=== PATIENT | female | born 1950 | race Caucasian/White ===

== ENCOUNTER → 2017-05-18 | Outpatient (CLI) | payer MEDICARE ==
--- NOTE | 2017-05-18 11:01 | MRI ---
EXAM: Cervical Spine HISTORY: CERVICALGIA COMPARISON: MRI of cervical spine from December 19, 2005 TECHNIQUE: Routine MRI protocol for cervical spine without intravenous contrast administration FINDINGS: Bony alignment at craniocervical and atlantooccipital junctions, including atlantoaxial interval, are maintained. There is stably straightened cervical lordosis. Vertebral heights are intact without compression injury. No spondylolysis nor spondylolisthesis is identified. Marrow signal characteristics are within normal limits without concerning edema to indicate acute/recent injury nor inflammation nor marrow infiltration. Facet joints demonstrate unremarkable alignment bilaterally. Spinous processes are intact. Cervical cord is morphologically unremarkable in appearance without focal expansile nor atrophic process, nor abnormal signal abnormality. Paraspinal soft tissue abnormality are within normal limits. At C2-3 level, disc height is maintained. Central canal and neuroforamen bilaterally are patent. At C3-4 level, disc height is maintained. Central canal and neuroforamen bilaterally are patent. At C4-5 level, disc height is maintained. Subtle posterior disc protrusion or extrusion by 1 mm is unchanged, continuing to minimally efface the ventral thecal margin without abutting the ventral cord. Central canal and right neuroforamen remains patent. Uncovertebral hypertrophy contributes to stable mild left neuroforaminal stenosis At C5-6 level, disc height is maintained. Annular disc bulge is associated with 3 mm posterior disc extrusion, which continue to broadly flattening the ventral thecal margin and mildly flatten the ventral cord. Central canal measures 6 to 7 mm in AP dimension, previously 7 to 8 mm in comparable dimension. Right neuroforamen is patent. Uncovertebral hypertrophy contributes to stable moderate left neuroforaminal stenosis At C6-7 level, disc height now reduced by less than 30%, previously maintained. Annular disc bulge at this level is associated with 3 mm of broad-based posterior disc extrusion which now increasingly abut and flatten the ventral cord. Central canal AP dimension of 7 mm, previously 9 mm. Extruded disc extending toward both lateral recesses now contribute to moderate to severe bilateral neuroforaminal stenosis, whereas in prior study of the right neuroforamen was patent while the left neuroforamen with is moderately stenosed. As C7-T1 level, disc height is maintained. Central canal and neuroforamen bilaterally are patent. IMPRESSION: 1. No acute or recent bony injury in cervical spine 2. No extrinsic compression nor myelomalacia nor demyelination in the cervical cord. 3. Interval increase in posterior disc extrusion at C5-6 and C6-7 levels, with mildly increased central canal stenosis at both levels. These changes likely correspond to interval progression of degenerative process. 4. Stable or slightly increased neuroforaminal stenosis in several levels as described. Electronically signed by: Keshawn Wiggins MD 05/18/2017 11:00 AM [facility]
== END ==
LOC: MRI 10:00
PROVIDERS: ATTEND Family Medicine
DX: M50.20 Other cervical disc displacement, unspecified cervical region (principal)

== ENCOUNTER → 2017-07-06 | Outpatient (CLI) | payer MEDICARE ==
--- NOTE | 2017-07-06 11:36 | RAD ---
EXAM DESCRIPTION: Knee,Left 2 or More Views CLINICAL HISTORY: 66 years, Female, PAIN IN LEFT KNEE COMPARISON: None TECHNIQUE: Four views of the left knee including standing views FINDINGS: No fracture or dislocation. Bones appear mildly osteopenic with prominent vector pattern. Narrowed appearance of medial and lateral compartments on frontal view. There is prominent medial and lateral joint line spurring. Lateral view shows normal position of the patella. There is complete loss of joint space with prominent posterior superior and inferior patellar spurring. Prominent spurring of the posterior femoral condyles. No suprapatellar knee joint effusion. Normal contour of quadriceps and patellar tendons. Mild lateral subluxation of the patella is seen on patellar sunrise view. Posterior patellar apex is approximately 5.5 mm lateral to the central trochlear trough. Large posterior medial and lateral patellar osteophytes are present with large osteophytes of the anterior femoral trochlea. IMPRESSION: Advanced degenerative osteoarthritis as described. Electronically signed by: James Fox MD 07/06/2017 11:34 AM CDT
--- NOTE | 2017-07-07 08:13 | RAD ---
EXAM DESCRIPTION: Pelvis CLINICAL HISTORY: 66 years Female, PAIN IN LEFT HIP COMPARISON: None. TECHNIQUE: Single x-ray view of hips and pelvis FINDINGS: Degenerative spurring is seen in the lower lumbar spine. Sacrum and SI joints appear intact. Mild degenerative changes of the pubic symphysis and hips with mild medial bilateral hip joint space narrowing and mild spurring at the inferior acetabular margins. No lytic lesion of the visualized osseous structures. No fracture or dislocation. IMPRESSION: Negative for fracture or dislocation. Degenerative changes as described. Electronically signed by: James Fxo MD 07/07/2017 8:11 AM CDT
== END ==
LOC: RAD 08:42
PROVIDERS: ATTEND Orthopaedic Surgery
DX: M25.562 Pain in left knee (principal); M17.32 Unilateral post-traumatic osteoarthritis, left knee

== ENCOUNTER → 2017-08-04 | Outpatient (CLI) | payer MEDICARE | LOC: LAB.O 13:03 | PROVIDERS: ATTEND Orthopaedic Surgery | DX: Z01.818 Encounter for other preprocedural examination (principal) ==

== ENCOUNTER 2017-09-18 05:46 | Inpatient (IN) | payer MEDICARE ==
--- NOTE | 2017-09-09 14:24 | HP ---
CHIEF COMPLAINT: Left knee pain. HISTORY OF PRESENT ILLNESS: Miya is a 66-year-old female with a history of pain in the left knee. It has been getting progressively worse over the past couple of years and she has had a right total knee replacement. She denies any history of trauma related to her left knee pain, denies any radiation of pain or neurologic symptoms. She has tried both anti-inflammatories and opioid medication from her primary care physician. Unfortunately, she has failed to get relief from that. Because of her failure of relief and ongoing pain, she has requested operative intervention. After discussing the risks, benefits and alternatives to that, the patient has given informed consent for total knee arthroplasty. PAST SURGICAL HISTORY: 1. Rotator cuff repair. 2. Knee arthroplasty. 3. Knee arthroscopy. MEDICATIONS: 1. Metformin. 2. Paroxetine. 3. Lisinopril. 4. Pantoprazole. 5. Tylenol with codeine. ALLERGIES: NO KNOWN DRUG ALLERGIES. CODE STATUS: Full code. IMMUNIZATIONS: Up to date. FAMILY HISTORY: None pertinent to today's complaint. SOCIAL HISTORY: The patient does not drink, smoke or use any illicit drugs. REVIEW OF SYSTEMS: Negative except as indicated in the History of Present Illness. PHYSICAL EXAMINATION: VITAL SIGNS: Blood pressure 99/80. Pulse 91. Height 5'4". Weight 208 pounds. MENTAL STATUS: The patient is awake, alert, and is able to give a good history and participate in the physical. The patient is oriented to person, place and time. SKIN: Normal tone and turgor. HEENT: Normocephalic, atraumatic. Pupils equal, round and reactive. Mucosal membranes are moist. NECK: Normal range of motion. No thyromegaly, no lymphadenopathy. CHEST: Normal respiratory excursion. CARDIAC: Regular rate and rhythm. No murmurs, rubs or gallops. MUSCULOSKELETAL: She has full range of motion of the bilateral upper extremities. She has intact sensation and they are warm and well perfused. There is no deformity and no crepitus with range of motion of the extremities. The right lower extremity shows no pain with range of motion of the hip. She has a well-healed wound anteriorly from previous knee replacement. She has full extension of the knee and flexion is to about 110 to 115 degrees. Strength is 5/5. Sensation is intact and it is warm and well perfused. The left lower extremity shows full painless range of motion of the hip. Sensation in the extremity is intact. The knee shows failure of full extension by about 5 degrees. Flexion is to 125 degrees. There is no overall deformity and no varus/valgus or anterior/posterior laxity. She has a moderate effusion. She has crepitus throughout. She has pain with patellar mobilization. She does walk with a slight antalgic gait. IMAGING: X-rays show severe endstage arthritis. ASSESSMENT: 1. Osteoarthritis. PLAN: The plan at this point is for total knee arthroplasty. We have discussed the risks, benefits, and alternatives to that and the patient has given informed consent. #[id number] [facility]
[2017-09-18] MEDS ORDERED: SODIUM CHL 0.9% 100ML MINI-BAG 100 ML IVPB ONE (06:04)
[2017-09-18] MEDS ORDERED: VANCOMYCIN HCL INJ 1,000 MG VIAL IVPB ONE ×3 (06:04→20:11)
[2017-09-18] MEDS ORDERED: LACTATED RINGERS 1,000 ML ONE (06:04)
[2017-09-18] MEDS ORDERED: SODIUM CHLORIDE 0.9% 250ML 250 ML ONE ×3 (06:05→20:11)
[2017-09-18] MEDS ORDERED: ceFAZolin SODIUM 1 GM VIAL ONE ×2 (06:05→06:20)
[2017-09-18] MEDS ORDERED: SODIUM CHLORIDE 0.9% 100ML 100 ML IVPB ONE (06:14)
[2017-09-18] MEDS ORDERED: TRANEXAMIC ACID 1,000 MG/10 ML VIAL ONE ×2 (06:14)
[2017-09-18] MEDS ORDERED: MORPHINE SULF *EPIDURAL* 1 MG/ML VIAL ONE (06:27)
[2017-09-18] MEDS ORDERED: fentaNYL CITRATE INJ 50 MCG/ML AMP ONE (06:27)
[2017-09-18] MEDS ORDERED: ACETAMINOPHEN IV 1000MG 100 ML ONE (06:27)
[2017-09-18] MEDS ORDERED: MIDAZOLAM INJ 2 MG/2 ML VIAL ONE (06:27)
[2017-09-18] MEDS: VANCOMYCIN HCL INJ 1,000 MG VIAL IVPB ONE ×3 (06:40→08:36)
[2017-09-18] MEDS ORDERED: ZOLPIDEM TARTRATE 5 MG TAB PO PRN (06:49)
[2017-09-18] MEDS ORDERED: TEMAZEPAM 15 MG CAP PO PRN (06:49)
[2017-09-18] MEDS ORDERED: BISACODYL SUPPOSITORY 10 MG PR PRN (06:49)
[2017-09-18] MEDS ORDERED: PROMETHAZINE HCL INJ 25 MG in SODIUM CHLORIDE 0.9% 50ML 50 ML IVPB PRN (06:49)
[2017-09-18] MEDS ORDERED: ACETAMINOPHEN 500 MG TAB PO PRN (06:49)
[2017-09-18] MEDS ORDERED: CYCLOBENZAPRINE HCL 10 MG TAB PO PRN (06:49)
[2017-09-18] MEDS ORDERED: SODIUM CHLORIDE 0.9% (FLUSH) 10 ML SYG IV PRN (06:49)
[2017-09-18] MEDS ORDERED: ACETAMINOPHEN 325 MG TAB PO PRN (06:49)
[2017-09-18] MEDS ORDERED: traMADol HCL 50 MG TAB PO PRN (06:49)
[2017-09-18] MEDS ORDERED: MORPHINE SULFATE INJ 10 MG/ML VIAL IV PRN (06:49)
[2017-09-18] MEDS ORDERED: DEX 5% W/NACL 0.45% 1000ML 1,000 ML IVS PRN (06:49)
[2017-09-18] MEDS ORDERED: NALOXONE HCL INJ 0.4 MG/ML VIAL IV PRN (06:49)
[2017-09-18] MEDS ORDERED: ONDANSETRON INJ 4 MG/2 ML VIAL IV PRN (06:49)
[2017-09-18] MEDS ORDERED: BENZOCAINE-MENTH LOZ (CEPACOL) 1 EA LOZ MT PRN (06:49)
[2017-09-18] MEDS ORDERED: TRANEXAMIC ACID INJ 1,000 MG in SODIUM CHLORIDE 0.9% 100ML 100 ML IVPB ONE (06:49)
[2017-09-18] MEDS ORDERED: PROMETHAZINE HCL INJ 12.5 MG in SODIUM CHLORIDE 0.9% 50ML 50 ML IVPB PRN (06:49)
[2017-09-18] MEDS ORDERED: ALUMINUM & MAGNESIUM HYDROXIDE 30 ML UD PO PRN (06:49)
[2017-09-18] MEDS ORDERED: MAGNESIUM HYDROXIDE 30 ML UD PO PRN (06:49)
[2017-09-18] MEDS ORDERED: MORPHINE SULFATE INJ 10 MG/ML VIAL IM PRN (06:49)
[2017-09-18] MEDS ORDERED: MORPHINE PCA 1 MG/ML 100 ML BAG IVPB SCH (07:00)
[2017-09-18] MEDS: BUPIVACAINE 0.25% W/EPI 50 ML VIAL INJ ONE ×2 (08:04→08:46)
[2017-09-18] MEDS: ceFAZolin SODIUM 1 GM VIAL ONE ×2 (08:04→08:36)
[2017-09-18] MEDS ORDERED: ELECTROLYTE-A 1,000 ML IVS ONE (08:45)
[2017-09-18] MEDS ORDERED: SODIUM CHLORIDE 0.9% 50 ML VIAL ONE (09:00)
[2017-09-18] MEDS ORDERED: GLYCOPYRROLATE 0.2 MG/ML VIAL ONE (09:00)
[2017-09-18] MEDS ORDERED: raNITIdine HCL INJ 25 MG/ML VIAL ONE (09:00)
[2017-09-18] MEDS ORDERED: ePHEDrine SULF 50 MG/ML ONE (09:00)
[2017-09-18] MEDS ORDERED: PROPOFOL 200 MG/20 ML VIAL IV ONE (09:00)
[2017-09-18] MEDS ORDERED: METOCLOPRAMIDE HCL INJ 10 MG/2 ML VIAL ONE (09:00)
[2017-09-18] MEDS ORDERED: DEXAMETHASONE INJ 10 MG/ML VIAL ONE (09:00)
[2017-09-18] MEDS ORDERED: PHENYLEPHRINE INJ 1ML 10 MG/ML VIAL ONE (09:00)
--- NOTE | 2017-09-18 11:07 | RAD ---
EXAM DESCRIPTION: Knee,Left 2 or More Views CLINICAL HISTORY: 66 years, Female, TKA COMPARISON: None TECHNIQUE: Two views left knee FINDINGS: Two views left knee postoperatively demonstrate total knee were prosthesis in place. I am uncertain that a patellar articular surface has been placed. Opaque metallic tibial and femoral components are well aligned. Postsurgical changes in the anterior soft tissues noted. IMPRESSION: 1. Satisfactory alignment of left total knee prosthesis. Electronically signed by: Chapincito Mishra MD 09/18/2017 11:05 AM CDT
[2017-09-18] MEDS ORDERED: ceFAZolin SODIUM 2 GRAMS PREMI 50 ML IVPB ONE ×2 (11:38→20:11)
[2017-09-18] MEDS: MAGNESIUM OXIDE 400 MG TAB PO SCH (12:58)
[2017-09-18] MEDS ORDERED: CELECOXIB 100 MG CAP ONE (13:52)
[2017-09-18] MEDS: ceFAZolin SODIUM 2 GRAMS PREMI 2 GM in PREMIX BAG 1 BAG IVPB SCH ×2 (16:03→23:59)
[2017-09-18] MEDS ORDERED: tiZANidine 4 MG TAB PO PRN (16:37)
[2017-09-18] MEDS: CELECOXIB 100 MG CAP PO SCH (16:42)
[2017-09-18] MEDS ORDERED: INSULIN LISPRO 100 UNITS/ML PEN SUBCU ONE (16:44)
[2017-09-18] MEDS ORDERED: DEXTROSE 50% 25 GM/50 ML SYG IV PRN (17:09)
[2017-09-18] MEDS ORDERED: GLUCAGON INJ 1 MG VIAL SUBCU PRN (17:09)
[2017-09-18] MEDS: INSULIN LISPRO 100 UNITS/ML PEN SUBCU SCH ×2 (17:18→21:08)
[2017-09-18] MEDS: metFORMIN HCL 500 MG TAB PO SCH (17:21)
[2017-09-18] MEDS: VANCOMYCIN HCL INJ 1,000 MG in SODIUM CHLORIDE 0.9% 250ML 250 ML IVPB SCH (17:29)
[2017-09-18] MEDS: SODIUM CHLORIDE 0.45% 1000ML 1,000 ML IVS PRN (20:24)
[2017-09-18] MEDS: DOCUSATE CALCIUM 240 MG CAP PO SCH (20:30)
[2017-09-18] MEDS: PANTOPRAZOLE SODIUM TAB 40 MG PO SCH (20:30)
--- NOTE | 2017-09-18 21:16 | CONS ---
DATE OF CONSULTATION: 09/18/17 SUPERVISING PHYSICIAN: Ryan Yeh M.D. REASON FOR CONSULTATION: Total left knee arthroplasty. HISTORY OF PRESENT ILLNESS: Ms. Silverio is a 66 year-old female patient who has a longstanding history of left knee pain. The pain had progressively worsened over the last several years after she had had a total right knee replacement. She was denying any history of trauma related to the knee pain and noted that the pain was not responding to any conservative treatments, including antiinflammatories and physical therapy. Due to the failure to respond to treatment and getting any significant relief and decreasing ability to perform everyday activities of living, she requested operative intervention. She is admitted to [facility] for elective total left knee arthroplasty. She was seen in the immediate postoperative state in stable condition. PAST MEDICAL HISTORY: 1. Diabetes mellitus. 2. Hypertension. 3. Depression. 4. Chronic knee pain. PAST SURGICAL HISTORY: 1. Rotator cuff repair bilaterally. 2. Right knee arthroscopy. 3. Right knee arthroplasty. 4. Carpal tunnel repair. HOME MEDICATIONS: 1. Paxil 20 mg daily. 2. Protonix 40 mg at bedtime. 3. Metformin 1,000 mg b.i.d. 4. Lisinopril 10 mg daily. 5. Gabapentin 300 mg daily. 6. Meloxicam 15 mg daily. ALLERGIES: NO KNOWN DRUG ALLERGIES. FAMILY HISTORY: Positive for diabetes mellitus, hypertension and cardiovascular disease. SOCIAL HISTORY: The patient lives in [place]. She is retired. . She has never drank and rarely drinks alcohol. REVIEW OF SYSTEMS: CONSTITUTIONAL: Denies any generalized weakness, weight loss, fevers, chills. HEENT: No headaches, nasal congestion, sore throat, ear aches. CHEST: No cough, wheezing or shortness of breath. CARDIOVASCULAR: No chest pains, palpitations or syncopal episodes. GASTROINTESTINAL: No nausea, vomiting, diarrhea, abdominal pains, constipation. GENITOURINARY: Denies any dysuria, hematuria, polyuria or other urinary symptoms. MUSCULOSKELETAL: As noted on History of Present Illness, total left knee arthroplasty. NEUROLOGIC: Denies any ataxia, seizures, syncopal episodes or other neurological deficits. PHYSICAL EXAMINATION: VITAL SIGNS: Temperature 97.7, pulse 103, blood pressure 122/76, respirations 14, satting 98% on nasal cannula at 3 liters at rest. Admission weight 94.3 kg. GENERAL: The patient is resting comfortably. Appears to be in no acute distress currently with left leg in place with a CPM and Iceman overlying the knee. She is alert. HEENT: Tympanic membranes are clear bilaterally. Oropharynx is pink and moist without any lesions. NECK: Supple, non-tender with full range of motion. No jugular venous distention. CHEST: Clear to auscultation bilaterally without any rhonchi, wheezing or rales. HEART: Regular rate and rhythm without appreciable murmurs, gallops, or rubs. ABDOMEN: Obese but soft, non-tender. Positive bowel sounds. EXTREMITIES: Left knee has a large bulky dressing in place as well as an Iceman. Pulse distally was strong. Capillary refill is brisk. NEUROLOGIC: She was alert and oriented times three. LABORATORY: CBC this morning on admission showed a white count 4,500 with hemoglobin 14.4, hematocrit 42.0, platelet count 209,000. Differential is within normal limits. Chemistries showed normal electrolytes with potassium 4.2 , BUN 18, creatinine 0.74 with glucose 200, calcium 10. RADIOLOGY: Postoperative knee x-ray per radiology interpretation shows satisfactory alignment of left total knee prosthesis. ASSESSMENT: 1. Chronic knee pain with failure to respond to outpatient treatment plan requiring surgical intervention with the patient being postoperative day zero for an elective total left knee arthroplasty having been performed by Dr. Nahid Cox, orthopedic surgeon 2. Hypertension. 3. Depression. 4. Gastroesophageal reflux disease. 5. Diabetes mellitus on oral therapy. PLAN: Will follow the patient as she progresses along in her physical therapy and rehabilitation efforts. Will resume her home medications as appropriate once she is having good oral intake. Will start her on a sliding scale per protocol. She will be on DVT prophylaxis as per protocol for orthopedic surgery. In discussing with her this morning in regards to plans for ongoing physical therapy once discharge is to begin therapy with [facility] in [place] which is where her daughter resides once she is able to discharge. Will anticipate at least 2 to 3 days before discharge with continuation of physical therapy and once the patient has met her clinical goals, certainly will discharge to continue with outpatient management. Until then, will continue to monitor and treat appropriately. #[id number] [facility]
--- NOTE | 2017-09-18 22:06 | PCM.CORE ---
Physician DVT/VTE - Nurse DVT Assessment & Total Each Risk Factor Represents 5 Points: Elective Arthtroplasty Each Risk Factor Represents 2 Points: Age 60-74, Major Surgery >45 minutes Each Risk Factor Represents 1 Point: Hx Major Surgery <1month Each Risk Factor is 1 Point: Obesity (BMI >25) DVT Assessment Score: 11 - 5 or more Very High Risk Treatments: Early Ambulation *, Sequential Compression Device Pharmacological: Enoxaparin 30mg SQ BID
[2017-09-18] MEDS: ENOXAPARIN SODIUM 30 MG/0.3 ML SYG SUBCU SCH (22:40)
[2017-09-19] MEDS: VANCOMYCIN HCL INJ 1,000 MG in SODIUM CHLORIDE 0.9% 250ML 250 ML IVPB SCH (06:09)
[2017-09-19] MEDS: CELECOXIB 100 MG CAP PO SCH ×2 (10:04→17:45)
[2017-09-19] MEDS: metFORMIN HCL 500 MG TAB PO SCH ×2 (10:06→17:46)
[2017-09-19] MEDS: MAGNESIUM OXIDE 400 MG TAB PO SCH (10:25)
[2017-09-19] MEDS: LISINOPRIL 5 MG TAB PO SCH (10:25)
[2017-09-19] MEDS: GABAPENTIN 300 MG CAP PO SCH (10:25)
[2017-09-19] MEDS: PARoxetine HCL 20 MG TAB PO SCH (10:25)
[2017-09-19] MEDS ORDERED: ceFAZolin SODIUM 2 GRAMS PREMI 50 ML IVPB ONE (10:26)
[2017-09-19] MEDS: ceFAZolin SODIUM 2 GRAMS PREMI 2 GM in PREMIX BAG 1 BAG IVPB SCH (11:00)
[2017-09-19] MEDS: ENOXAPARIN SODIUM 30 MG/0.3 ML SYG SUBCU SCH ×2 (11:55→23:24)
[2017-09-19] MEDS: INSULIN LISPRO 100 UNITS/ML PEN SUBCU SCH ×4 (13:06→21:27)
--- NOTE | 2017-09-19 15:08 | PN ---
DATE: SUBJECTIVE: Ms. Silverio is subjectively doing pretty well and she is doing her CPM. OBJECTIVE: She is afebrile. Vital signs are stable. Dressing is clean, dry and intact. ASSESSMENT: 1. Status post total knee arthroplasty. PLAN: The plan at this point is for her to continue to increase her CPM as tolerated. She will also maintain weightbearing status as tolerated. [facility][id number] [facility]
[2017-09-19] MEDS: IV SET AND CAP CHANGE INJ INJ SCH (17:29)
--- NOTE | 2017-09-19 18:41 | OP ---
DATE OF PROCEDURE: 09/19/17 PREOPERATIVE DIAGNOSIS: 1. End stage arthritis of the knee. POSTOPERATIVE DIAGNOSIS: 1. End stage arthritis of the knee. PROCEDURE: 1. Total knee arthroplasty. SURGEON: Nahid Cox M.D. SECOND TIME WORKER: Drew Allison CST, SA-C ANESTHESIA: General anesthesia. COMPLICATIONS: None. FINDINGS: Severe osteoarthritis. INDICATION FOR PROCEDURE: Ms. Silverio has a history of severe pain that has been secondary to arthritis. It has been progressively getting worse and has had failure of conservative measures. Because of her ongoing pain she has requested operative intervention. After discussing the risks, benefits, and alternatives to that, she has given informed consent for that. PROCEDURE: The patient was brought to the Operating Room and placed in supine position. General anesthesia was induced and the patient's leg was sterilely prepped and draped. Following prepping and draping, the distal femur was exposed and using an intramedullary guide, the distal femoral cut was made. The appropriate sized cutting block was measured, pinned into place, and the anterior, posterior, and chamfer cuts were made. The ACL was transected and the tibia was subluxed. Both the medial and lateral menisci were removed. An intramedullary guide was used to make the proximal tibial cut. The appropriate sized base plate was placed and a trial polyethylene was placed. The trial femur was placed, the knee was reduced, and the knee was taken through a range of motion. The knee was stable in anterior, posterior, varus and valgus stress. The patella tracked anatomically without evidence of subluxation or dislocation. After trialing, the trial components were removed and the bony surfaces were thoroughly irrigated with saline. Following irrigation, the surfaces were dried and the final components were cemented into place. The excess cement was removed and the remaining cement was allowed to cure. The knee was again taken through a range of motion to confirm stability. The wound was then irrigated with saline and closure was performed using PDS to approximate the arthrotomy followed by closure of the subcutaneous tissues with a combination of running and interrupted Monocryl sutures. Sterile dressing was placed. The patient was awoken from anesthesia and taken to Recovery. COMPONENTS: Reinaldo Triathlon knee, size 4 femur, size 4 tibia, 9 mm insert. POSTOPERATIVE INSTRUCTIONS: The patient will be weightbearing as tolerated on postoperative day 1. #[id number] [facility]
[2017-09-19] MEDS: SODIUM CHLORIDE 0.45% 1000ML 1,000 ML IVS PRN (20:20)
[2017-09-19] MEDS: DOCUSATE CALCIUM 240 MG CAP PO SCH (20:20)
[2017-09-19] MEDS: PANTOPRAZOLE SODIUM TAB 40 MG PO SCH (20:20)
--- NOTE | 2017-09-19 22:27 | PN ---
DATE: 09/19/17 SUPERVISING PHYSICIAN: Ryan Yeh M.D. SUBJECTIVE: The patient is up to a chair this morning. She notes that her pain is significantly increased. She also has had some nausea associated with breakfast this morning and remains on clear liquids. Will transition to regular food until she is no longer having any nausea. She was able to participate with Physical Therapy this morning but again notes that the pain is significantly increased. OBJECTIVE: VITAL SIGNS: Temperature 98.6, blood pressure 144/88, respirations 20, satting 97% on room air. I's and O's show a negative balance of 2525 with 1150 in, 3675 out. Weight 94.3 kg. CHEST: Lungs are clear to auscultation. HEART: Regular rate and rhythm. ABDOMEN: Soft, non-tender. Positive bowel sounds. Left knee remains with a bulky Randy bandage in place. Pulses distally were strong, capillary refill is brisk. NEUROLOGIC: She is alert and oriented times three. LABORATORY: Postoperative H&H 13.1 and 37.8. Blood sugars have been slightly elevated as she was not able to hold any medicine down this morning, including her Metformin. It has been running between 154 and 249. ASSESSMENT: 1. Postoperative day 1 for elective total left knee arthroplasty having been performed by Dr. Nahid Cox, orthopedic surgeon. 2. Chronic knee pain having failed to respond to outpatient treatment plan requiring surgical intervention as noted in #1. 3. Hypertension, stable. 4. Depression on antidepressants. 5. Gastroesophageal reflux disease. 6. Diabetes mellitus on oral therapy. PLAN: Will continue to follow the patient as she continues to progress through her physical therapy efforts. She did have a little nausea this morning. As soon as this resolves, will transition her to a 2200 calorie ADA diet. Will continue to monitor blood sugars and encourage good pulmonary hygiene, and use of incentive spirometry to prevent any complications. Once the patient has shown good improvement and met her goals, discharge planning at this point is to discharge the patient to continue with physical therapy through [facility] in [place], [place] where the patient's daughter lives. We will continue with discharge planning to arrange for this physical therapy. As it is the weekend, will pursue this more Thursday with Vicky. Until the patient is clinically improved and met her physical therapy goals, will continue to monitor and treat appropriately until discharge. #[id number] [facility]
[2017-09-20] MEDS: HYDROcodone 5MG/APAP 325MG 1 EA TAB PO PRN ×4 (05:37→19:22)
[2017-09-20] MEDS: metFORMIN HCL 500 MG TAB PO SCH ×2 (08:45→19:18)
[2017-09-20] MEDS: CELECOXIB 100 MG CAP PO SCH ×2 (08:45→19:19)
[2017-09-20] MEDS: INSULIN LISPRO 100 UNITS/ML PEN SUBCU SCH ×4 (08:46→21:23)
[2017-09-20] MEDS: LISINOPRIL 5 MG TAB PO SCH (09:02)
[2017-09-20] MEDS: MAGNESIUM OXIDE 400 MG TAB PO SCH (09:02)
[2017-09-20] MEDS: GABAPENTIN 300 MG CAP PO SCH (09:02)
[2017-09-20] MEDS: PARoxetine HCL 20 MG TAB PO SCH (09:02)
[2017-09-20] MEDS: SODIUM CHLORIDE 0.9% (FLUSH) 10 ML SYG IV SCH ×2 (09:03→21:24)
[2017-09-20] MEDS: ENOXAPARIN SODIUM 30 MG/0.3 ML SYG SUBCU SCH ×2 (16:00→23:30)
--- NOTE | 2017-09-20 19:18 | PN ---
DATE: 09/20/17 SUPERVISING PHYSICIAN: Ryan Yeh M.D. SUBJECTIVE: The patient is doing well. She is tolerating her physical therapy much better today. Has better pain control. She is no longer having any nausea and is tolerating a regular diet. She remains afebrile. OBJECTIVE: VITAL SIGNS: Temperature 98.2, pulse 76, blood pressure 176/54, respirations 20, satting 98% on room air. I's and O's show a negative balance of 744 with 1506 in, 2250 out. She has not yet had a bowel movement. Weight is 94.3 kg. CHEST: Clear to auscultation. HEART: Regular rate and rhythm. ABDOMEN: Obese but soft, non-tender. Positive bowel sounds. EXTREMITIES: Left knee continues to have a bulky dressing in place. Pulses distally are strong. Capillary refill is brisk. NEUROLOGIC: She is alert and oriented times three. LABORATORY: Blood sugars have been elevated but stable between 200 and 233 which the patient notes that is her fairly normal blood sugars. ASSESSMENT: 1. Postoperative day 2 for elective total left knee arthroplasty having been performed by Dr. Nahid Cox, orthopedic surgeon. 2. Chronic knee pain having failed to respond to outpatient treatment plan requiring surgical intervention as noted in #1. 3. Hypertension, stable. 4. Depression on antidepressants. 5. Gastroesophageal reflux disease. 6. Diabetes mellitus on oral therapy. PLAN: Will continue to follow the patient as needed along with Physical Therapy. Discharge plan is in place with anticipation of discharging to continue with outpatient management in [place], [place] at [facility] where her daughter resides currently. Will continue to monitor her blood sugars and again encourage incentive spirometry and good pulmonary hygiene. Until discharge, will continue to monitor and treat appropriately. #[id number] [facility]
[2017-09-20] MEDS: PANTOPRAZOLE SODIUM TAB 40 MG PO SCH (21:24)
[2017-09-20] MEDS: DOCUSATE CALCIUM 240 MG CAP PO SCH (21:24)
[2017-09-21] MEDS: HYDROcodone 5MG/APAP 325MG 1 EA TAB PO PRN ×4 (02:54→18:03)
[2017-09-21] MEDS: INSULIN LISPRO 100 UNITS/ML PEN SUBCU SCH ×4 (07:38→21:04)
[2017-09-21] MEDS: metFORMIN HCL 500 MG TAB PO SCH ×2 (07:44→17:00)
[2017-09-21] MEDS: CELECOXIB 100 MG CAP PO SCH ×2 (07:45→17:00)
--- NOTE | 2017-09-21 08:26 | PN ---
DATE: 09/20/17 SUBJECTIVE: Ms. Silverio is up to a chair and is doing pretty well. Pain is well controlled. OBJECTIVE: Afebrile. Vital signs stable. Wound is clean. There are no signs or symptoms of infection. ASSESSMENT: Status post total knee arthroplasty. PLAN: The plan at this point is for her to continue with weight-bearing as tolerated. [facility][id number] [facility]
--- NOTE | 2017-09-21 08:32 | PN ---
DATE: 09/21/17 SUBJECTIVE: Ms. Silverio is up to a chair and without complaint this morning. OBJECTIVE: Afebrile. Vital signs stable. Wound is clean. There are no signs or symptoms of infection. ASSESSMENT: Status post total knee arthroplasty. PLAN: The plan at this point is to continue with her weight-bearing status. We will discharge her to home when she has achieved all goals. [facility][id number] [facility]
[2017-09-21] MEDS: GABAPENTIN 300 MG CAP PO SCH (09:29)
[2017-09-21] MEDS: MAGNESIUM OXIDE 400 MG TAB PO SCH (09:29)
[2017-09-21] MEDS: LISINOPRIL 5 MG TAB PO SCH (09:29)
[2017-09-21] MEDS: PARoxetine HCL 20 MG TAB PO SCH (09:29)
[2017-09-21] MEDS: SODIUM CHLORIDE 0.9% (FLUSH) 10 ML SYG IV SCH ×2 (09:30→21:16)
[2017-09-21] MEDS: IV SET AND CAP CHANGE INJ INJ SCH (09:30)
[2017-09-21] MEDS: ENOXAPARIN SODIUM 30 MG/0.3 ML SYG SUBCU SCH ×2 (12:33→23:24)
--- NOTE | 2017-09-21 13:16 | PN ---
SUPERVISING PHYSICIAN: Chapincito Bhardwaj MD DATE: 09/21/17 SUBJECTIVE: The patient is lying in her hospital bed. She is in no acute distress. We discussed her discharge plan to go to [place] with [facility]. She denies any significant pain, nausea, vomiting, diarrhea or constipation. She feels like physical therapy is progressing well. OBJECTIVE: VITAL SIGNS: Afebrile. Heart rate 99. Blood pressure 139/79. Respiratory rate 18. O2 saturation 95% on room air. RESPIRATORY: Essentially clear to auscultation bilaterally. CARDIAC: Regular rate and rhythm. GASTROINTESTINAL: Abdomen is soft, nondistended, nontender. Bowel sounds are positive. EXTREMITIES: Bilateral pedal pulses are palpable at +2. Dressing to the left knee incision is dry and intact. There is a mild amount of swelling to the left knee. NEUROLOGIC: Awake, alert and oriented times three. LABORATORY: There are no labs or films to report with the exception of her blood glucoses have run between 200 and 255. All other labs and films have been reviewed via the EMR. ASSESSMENT: 1. Postoperative day 3 for elective total left knee arthroplasty having been performed by Dr. Nahid Cox, orthopedic surgeon. 2. Chronic knee pain having failed outpatient treatment and requiring surgical intervention as noted in #1. 3. Hypertension. 4. Depression. 5. Gastroesophageal reflux disease. 6. Diabetes mellitus. PLAN: We will continue present supportive care. Orthopedic issues will be per Dr. Nahid Cox, orthopedic surgeon. She will continue with her physical therapy for strengthening and conditioning as ordered. We will plan for discharge tomorrow to day with her daughter in [place]. She is to have [facility] as an outpatient. We will anticipate discharge tomorrow. Otherwise, we will continue to monitor the patient closely and follow as needed. Dr. Bhardwaj is the collaborating physician and available for consultation. #[id number] [facility]
[2017-09-21] MEDS ORDERED: BISACODYL SUPPOSITORY 10 MG PR ONE (21:00)
[2017-09-21] MEDS ORDERED: MAGNESIUM HYDROXIDE 30 ML UD PO ONE (21:00)
[2017-09-21] MEDS: DOCUSATE CALCIUM 240 MG CAP PO SCH (21:05)
[2017-09-21] MEDS: PANTOPRAZOLE SODIUM TAB 40 MG PO SCH (21:06)
[2017-09-22] MEDS: HYDROcodone 5MG/APAP 325MG 1 EA TAB PO PRN ×3 (01:35→13:10)
[2017-09-22 06:07] VITALS: O2SAT 97
[2017-09-22] MEDS: INSULIN LISPRO 100 UNITS/ML PEN SUBCU SCH ×2 (07:49→11:52)
[2017-09-22] MEDS: CELECOXIB 100 MG CAP PO SCH (08:18)
[2017-09-22] MEDS: PARoxetine HCL 20 MG TAB PO SCH (08:18)
[2017-09-22] MEDS: GABAPENTIN 300 MG CAP PO SCH (08:18)
[2017-09-22] MEDS: metFORMIN HCL 500 MG TAB PO SCH (08:19)
[2017-09-22] MEDS: LISINOPRIL 5 MG TAB PO SCH (08:19)
[2017-09-22] MEDS: MAGNESIUM OXIDE 400 MG TAB PO SCH (08:21)
[2017-09-22] MEDS: SODIUM CHLORIDE 0.9% (FLUSH) 10 ML SYG IV SCH (11:50)
[2017-09-22 12:15] VITALS: BP 123/81; TEMP 98
--- NOTE | 2017-09-22 15:41 | DS ---
SUPERVISING PHYSICIAN: Chapincito Bhardwaj MD DISCHARGE DIAGNOSIS: 1. Postoperative day #4 for elevated left total knee arthroplasty having been performed by Dr. Nahid Cox, orthopedic surgeon. 2. Chronic knee pain having failed outpatient treatment and requiring surgical intervention as noted in #1. 3. Hypertension. 4. Depression. 5. Gastroesophageal reflux disease. 6. Diabetes mellitus. HISTORY OF PRESENT ILLNESS: This is a 66-year-old female patient who has a longstanding history of left knee pain. The pain had progressively worsened over the last few years. She had total knee arthroplasty of hernial rt knee. The pain had not responded to any conservative treatments including anti- inflammatories and physical therapy. Due to the failure to respond to treatment in getting any significant relief from her pain and decreasing ability to perform everyday activities, she requested operative intervention by Dr. Nahid Cox, orthopedic surgeon. Intraoperatively, there were no problems. She was seen postoperatively on the Floor. HOSPITAL COURSE: Postoperatively, she has no significant problems. She completed her physical therapy for strengthening and conditioning. Her hemoglobin and hematocrit remained stable, although her blood sugars were slightly high in the 150s to 250 range. Her home medications were started. She was transitioned to p.o. pain medications. She will be discharged today. DISCHARGE PLAN: The patient will be discharged home in stable condition. She is to go [place] and live with her daughter during her rehabilitation phase and she is to have [facility] in [place], [place]. She has an appointment with them on , 09/24/17, at 10 AM. She has a followup with Dr. Cox on 10/05/17 at 10 AM. I have resumed her previous medications and I have given her 7 additional days of Xarelto as well as some Zanaflex. She is to call Dr. Cox's office or return to the nearest Emergency Room for any problems or complications. DISCHARGE MEDICATIONS: 1. Paxil. 2. Metformin. 3. Lisinopril. 4. Pantoprazole. 5. Meloxicam. 6. Neurontin. 7. Surfak. 8. Hydrocodone. 9. Xarelto. 10. Zanaflex. #[id number] [facility]
== END 2017-09-22 13:30 | disposition home or self-care (01) | DRG 470 ==
LOC: AMB 05:46 → MS 11:00
PROVIDERS: ADMIT Orthopaedic Surgery; ATTEND Nurse Practitioner Acute Care
PROC: 0SRD0J9 Replacement of Left Knee Joint with Synthetic Substitute, Cemented, Open Approach (ICD-10-PCS; principal; 2017-09-18 07:04)
DX: M17.12 Unilateral primary osteoarthritis, left knee (principal); I10 Essential (primary) hypertension; E11.65 Type 2 diabetes mellitus with hyperglycemia; K21.9 Gastro-esophageal reflux disease without esophagitis; E66.9 Obesity, unspecified; F32.9 Major depressive disorder, single episode, unspecified; G89.29 Other chronic pain; Z79.84 Long term (current) use of oral hypoglycemic drugs; Z79.1 Long term (current) use of non-steroidal anti-inflammatories (NSAID); Z68.35 Body mass index [BMI] 35.0-35.9, adult

== ENCOUNTER → 2017-11-23 | Outpatient (CLI) | payer MEDICARE | LOC: GMAL 11:38 | PROVIDERS: ATTEND Family Medicine | DX: D51.3 Other dietary vitamin B12 deficiency anemia (principal); R53.82 Chronic fatigue, unspecified; E55.9 Vitamin D deficiency, unspecified ==

== ENCOUNTER → 2018-04-15 | Outpatient (CLI) | payer MEDICARE | LOC: GMAL 14:45 | PROVIDERS: ATTEND Family Medicine | DX: D51.3 Other dietary vitamin B12 deficiency anemia (principal); R53.82 Chronic fatigue, unspecified ==

== ENCOUNTER → 2018-04-19 | Outpatient (CLI) | payer MEDICARE ==
--- NOTE | 2018-04-19 16:53 | MRI ---
EXAM DESCRIPTION: Brain w/o Contrast: MRI. CLINICAL HISTORY: MEMORY LOSS COMPARISON: None. TECHNIQUE: Multiplanar, high-field MRI unit, multiple diffusion sequences, multiple conventional sequences without contrast. FINDINGS: Small bilateral foci of hyperintense FLAIR and T2-weighted signal in the frontal periventricular white matter and epperson-white matter junctions of the cerebral hemispheres. Subcortical epperson matter involvement mostly in above the lateral ventricles.. . No hemorrhage, no cerebral edema, no mass-effect. No diffusion restriction. Normal signal in the bilateral basal ganglia. Normal signal in the brainstem and cerebellar hemispheres. No hemorrhage, no cerebral edema, no mass-effect. No diffusion restriction. Concordance of the diffusion and non-diffusion sequences with no diffusion restriction. Cortical sulci, ventricles, and other CSF spaces, and the subdural spaces are normally configured for patients age.. No effacement or displacement. No midline shift. No extra-axial hemorrhage. Normal flow signal void in the major vessels of the [place], and the venous sinuses. IACs are symmetric bilaterally. Normal signal in the bilateral mastoid air cells. No mass effect in the bilateral cerebellopontine angles. Pituitary gland occupies the bottom third of the sella. Base of the cerebellar tonsils is above the foramen magnum. Chronic thickening in the paranasal sinuses. Bela bullosa left middle turbinate. The bony calvarium is intact. IMPRESSION: 1. Findings and mostly in the frontal lobes bilaterally more in the subcortical white matter than the periventricular white matter, and more right than left. No hemorrhage or diffusion restriction. Most likely age-related and cerebral microvascular disease. 2. Normal diffusion in the remainder of the brain. No extra-axial hemorrhage or fluid. Chronic paranasal sinusitis. Electronically signed by: Drew Cabrera MD 04/19/2018 4:52 PM [facility]
== END ==
LOC: MRI 11:00
PROVIDERS: ATTEND Family Medicine
DX: R41.3 Other amnesia (principal); J32.9 Chronic sinusitis, unspecified; Z82.41 Family history of sudden cardiac death

== ENCOUNTER → 2018-06-22 | Outpatient (CLI) | payer MEDICARE ==
--- NOTE | 2018-06-22 20:57 | MRI ---
EXAM DESCRIPTION: Cervical Spine: MRI. CLINICAL HISTORY: 67 years Female CERVICAL RADICULOPATHY COMPARISON: MRI scan cervical spine without contrast 05/17/2017. TECHNIQUE: Multiplanar, high-field MRI, multiple sequences, non-contrast Cervical spine. FINDINGS: C2-C3: Normal disc and disc space. Arthrosis of the left facet with minimal neural foraminal narrowing. Canal and right neuroforamen are patent. C4-C5: Minimal disc desiccation. Minimal anterior bulging. Posterior 2 mm bulge abutting the ventral cord. Minimal arthrosis left facet joint. Small uncinate spur. Mild to moderate narrowing left neural foramen. Mild canal narrowing. Right neuroforamen is patent. C5-C6: Minimal disc space loss and desiccation with anterior bulging. Trace retrolisthesis. Posterior midline bulge impressing on the ventral cord. AP canal diameter 6 mm. Minimal left facet arthrosis. Left uncinate spur with left neural foramen stenosis. Mild right neural foraminal narrowing. Stable since the prior study. C6-C7: Disc desiccation and minimal disc space loss. Anterior disc bulge with endplate ridging abutting the posterior esophagus. Posterior disc bulge in the midline abutting the cord. Modic type I endplate reactive changes diffusely involving the left side. Bilateral uncinate spurs and bulging discs encroaching on the foramina with moderate right neural foraminal narrowing and moderate to severe left neural foraminal stenosis. AP canal diameter 7 mm. Normal signal in the remaining discs with no bulging. Disc spaces preserved. Canal and neural foramina are patent. Facet joints unremarkable. Spinal alignment . Slight kyphosis mid spine. No cord compression or cord edema. Atlantoaxial joint minimal arthrosis. Base of the cerebellar tonsils is just above the foramen magnum. Paravertebral soft tissues unremarkable. Vertebral bodies are not compressed at any level. Normal marrow signal in the remaining vertebral bodies and the posterior elements. IMPRESSION: 1. Posterior 2 mm bulge C4-C5 increased since the prior study but no significant canal or neural foraminal stenosis. 2. Posterior midline bulge C5-6 and trace retrolisthesis. Mild to moderate canal stenosis stable. Left uncinate spur with left foraminal stenosis stable. 3. Spondylosis involving the left side endplates at C6-7 slightly more prominent. Moderate to severe left neural foraminal stenosis unchanged. Mild central canal stenosis unchanged. Electronically signed by: Drew Cabrera MD 06/22/2018 8:54 PM CDT
== END ==
LOC: MRI 13:00
PROVIDERS: ATTEND Psychiatry & Neurology Neurology
DX: M50.123 Cervical disc disorder at C6-C7 level with radiculopathy (principal); M47.892 Other spondylosis, cervical region; M48.02 Spinal stenosis, cervical region

== ENCOUNTER → 2018-09-14 | Outpatient (CLI) | payer MEDICARE ==
--- NOTE | 2018-09-15 17:01 | MAM ---
EXAM DESCRIPTION: 3D Screening BILATERAL : Digital Mammography. CLINICAL HISTORY: 67 years Female Screening . No complaints. No personal or family history of breast cancer. Childbirth. Postmenopausal. HRT 5 or more years ago. Lifetime risk of developing breast cancer (Tyrer-Cuzick model)(%): 4.8. COMPARISON: 2-D digital screening bilateral mammography 10/02/2015. TECHNIQUE: Bilateral CC and MLO projection full-field images, digital tomosynthesis mammographic technique. Bilateral digital 2-D full-field MLO images. CAD not available for tomosynthesis or 2-D images. FINDINGS: The breast parenchymal density pattern is: Almost entirely fatty. No skin thickening or nipple retraction. Right axillary lymph nodes. Bilateral solitary microcalcifications. Bilateral vascular calcifications. Left breast is larger than the right. Stable intramammary nodule anterior lateral left breast. No new focal, stellate mass or density, focal asymmetry , and no suspicious microcalcifications bilaterally. Stable mammograms compared to prior study. Taking into account, differences in mammographic technique. IMPRESSION: Benign exam. BIRAD CATEGORY: 2 BENIGN FINDINGS. RECOMMENDATIONS: FOLLOW UP: Routine digital bilateral mammographic screening, one year interval from September 2018. Written communication explaining the IMPRESSION and follow-up, will be mailed to the patient and referring health care provider. The FINDINGS and the FOLLOW-UP plan were reviewed in person with the patient after the examination. According to the [employer], yearly mammograms are recommended starting at age 40 and continuing as long as a woman is in good health. Any breast change noted on a breast self-exam should be reported promptly to the patient's healthcare provider. Breast MRI is recommended for women with an approximately 20-25% or greater lifetime risk of breast cancer, including women with a strong family history of breast or ovarian cancer and women who have been treated for Hodgkin's disease. A negative mammographic report should not delay tissue diagnosis in patients with significant clinical history or physical findings. Extremely dense breast tissue limits the sensitivity of digital mammography. Electronically signed by: Drew Cabrera MD 09/15/2018 4:59 PM CDT
== END ==
LOC: MAMMO 10:18
PROVIDERS: ATTEND Family Medicine
DX: Z12.31 Encounter for screening mammogram for malignant neoplasm of breast (principal)

== ENCOUNTER → 2018-12-15 | Outpatient (CLI) | payer MEDICARE | LOC: GMAL 11:35 | PROVIDERS: ATTEND Family Medicine | DX: E55.9 Vitamin D deficiency, unspecified (principal); E78.2 Mixed hyperlipidemia; E11.9 Type 2 diabetes mellitus without complications; I10 Essential (primary) hypertension ==

== ENCOUNTER → 2019-04-25 | Outpatient (CLI) | payer MEDICARE | LOC: GMAL 12:41 | PROVIDERS: ATTEND Family Medicine | DX: R53.82 Chronic fatigue, unspecified (principal); I10 Essential (primary) hypertension; E78.2 Mixed hyperlipidemia; E11.9 Type 2 diabetes mellitus without complications ==

== ENCOUNTER → 2019-10-24 | Outpatient (CLI) | payer MEDICARE | LOC: GMAL 10:36 | PROVIDERS: ATTEND Family Medicine | DX: D51.3 Other dietary vitamin B12 deficiency anemia (principal); I10 Essential (primary) hypertension; E55.9 Vitamin D deficiency, unspecified; E11.9 Type 2 diabetes mellitus without complications; E78.2 Mixed hyperlipidemia; R53.82 Chronic fatigue, unspecified ==

== ENCOUNTER 2019-11-21 12:18 | Emergency (ER) | payer MEDICARE ==
[2019-11-21 12:45] VITALS: TEMP 96.6
--- NOTE | 2019-11-21 13:07 | RAD ---
EXAMINATION: Chest x-ray one view. INDICATION: Flushing. COMPARISON: None TECHNIQUE: Frontal radiograph chest. FINDINGS: Overlying EKG leads and wires obscure portions of the lungs. The cardiac silhouette is normal in size. No focal consolidative process or pulmonary edema. There is no pneumothorax. IMPRESSION: No acute pulmonary findings. Electronically signed by: Keeley Carter MD 11/21/2019 1:05 PM CDT
--- NOTE | 2019-11-21 13:18 | CT ---
EXAMINATION: CT Head without contrast INDICATION: Recurrent fall. COMPARISON: None TECHNIQUE: Axial CT scan of the head was obtained without intravenous contrast. Coronal and sagittal reformats were provided for further interpretation. This CT exam was performed using one or more of the following dose reduction techniques: Automated exposure control, Adjustment of the mA and/or kV according to patient size, Use of iterative reconstruction technique FINDINGS: BASILAR CISTERNS: Intact. BRAIN: Symmetric extra-axial spaces. Age-related atrophy with compensatory dilation of the ventricles and sulci. Hypoattenuating lesions in the periventricular white matter, most compatible with small vessel ischemic changes. No intracranial hemorrhage. VENTRICLES: No hydrocephalus. No mass effect or midline shift. ORBITS: Orbits and orbital contents are grossly normal. BONES: No depressed calvarial fractures. SOFT TISSUES: Intact SINUSES: Clear MASTOID AIR CELLS: Clear IMPRESSION: 1. No intracranial hemorrhage, mass effect, or midline shift. 2. Chronic aging changes of the brain. Electronically signed by: Keeley Carter MD 11/21/2019 1:17 PM CDT
[2019-11-21] MEDS ORDERED: cloNIDine HCL 0.1 MG TAB PO ONE (14:24)
--- NOTE | 2019-11-21 15:42 | ED.PDOC ---
History of Present Illness - General Chief Complaint: General Stated Complaint: fall Time Seen by Provider: 11/21/19 12:32 Source: patient Exam Limitations: no limitations - History of Present Illness Initial Comments: The patient is a 69-year-old female presented emergency room secondary to an episode of dizziness and falling that occurred about 3 days ago. The latrell ent does have some chronic disequilibrium issues and has fallen before in the past. No significant head or neck injury. No altered mental status. No focal neurological changes. No weakness. No sensory changes. No speech problems. No swallowing problems. She presented secondary to concern for possibility of a stroke. Blood pressure is moderately elevated here today with the systolics in the 190s and diastolics in the 1 teens. Timing/Duration: constant Severity: mild Improving Factors: nothing Worsening Factors: nothing Associated Symptoms: malaise Allergies/Adverse Reactions: Allergies NO KNOWN ALLERGY Allergy (Verified 12/10/15 10:58) Home Medications: Ambulatory Orders Metformin HCl [Metformin Hydrochloride] 1,000 mg PO BID 12/10/15 Pantoprazole Tablet [Protonix] 40 mg PO BEDTIME 12/10/15 Paroxetine HCl [Paroxetine Hydrochloride] 20 mg PO BID 09/15/17 Aspirin [Aspirin 81 Low Dose] 81 mg PO DAILY 11/21/19 Clonidine HCl 0.1 mg PO BID PRN #15 tab 11/21/19 Donepezil Hydrochloride [Donepezil HCl] 10 mg PO DAILY 11/21/19 Lisinopril 20 mg PO BID 11/21/19 Pioglitazone HCl [Actos] 7.5 mg PO DAILY 11/21/19 Pravastatin Sodium 40 mg PO DAILY 11/21/19 Review of Systems - Review of Systems Constitutional: States: malaise EENTM: States: no symptoms reported Respiratory: States: no symptoms reported Cardiology: States: no symptoms reported Gastrointestinal/Abdominal: States: no symptoms reported Genitourinary: States: no symptoms reported Musculoskeletal: States: no symptoms reported Skin: States: no symptoms reported Neurological: States: see HPI Endocrine: States: see HPI All other Systems: No Change from Baseline Past Medical History (General) - Patient Medical History Hx Seizures: No Hx Stroke: No Hx Asthma: No Hx of COPD: No Hx Congestive Heart Failure: No Hx Pacemaker: No Hx Hypertension: Yes Hx Diabetes: Yes Hx MRSA: No - Social History Hx Alcohol Use: No Hx Substance Use: No Hx Physical Abuse: No Hx Emotional Abuse: No Family Medical History - Family History Father Hx Family Hypertension: Yes Physical Exam - Physical Exam General Appearance: Alert, Anxious, No apparent distress Eye Exam: bilateral normal Ears, Nose, Throat: hearing grossly normal, normal pharynx Neck: full range of motion, supple Respiratory: lungs clear, normal breath sounds, no respiratory distress, no accessory muscle use Cardiovascular/Chest: normal peripheral pulses, regular rate, rhythm, no edema Peripheral Pulses: radial,right: 2+, radial,left: 2+ Gastrointestinal/Abdominal: non tender, soft Rectal Exam: deferred Back Exam: no CVA tenderness, no vertebral tenderness Extremity: normal range of motion, non-tender, normal inspection, no pedal edema, normal capillary refill 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 Progress - Progress Progress: 11/21/19 15:42 The patient is a 69-year-old female presenting secondary to dizziness. The patient is found to have uncontrolled hypertension and did receive a dose of clonidine which did help. The patient will be written for clonidine 0.1 mg every 12 hours as needed to be taken only if the systolic blood pressure is greater than 170 or the diastolic blood pressures greater than 110, both on 2 consecutive checks 1 hour apart. The patient does need to continue her daily aspirin. Laboratory work along with head CT and chest x-ray along with EKG were reassuring as well. She does need to ambulate carefully to prevent falls. The patient will be called with the results of her coronavirus swab. shelly maldonado 063 11/21/19 15:46 - Results/Orders Results/Orders: Chest x-ray is within normal limits. Head CT shows no acute pathology. See report for details. EKG shows normal sinus rhythm at 91 bpm. Mild left axis deviation. Corresponding poor R wave progression. No ST segment or T wave changes indicative of acute ischemia. Normal QT interval. Laboratory Tests 11/21/19 11/21/19 11/21/19 13:17 13:17 13:41 WBC 6.9 RBC 4.25 Hgb 14.0 Hct 39.9 MCV 94.0 MCH 32.9 H MCHC 35.1 RDW 13.2 Plt Count 214 MPV 7.9 Absolute Neuts (auto) 5.20 Absolute Lymphs (auto) 0.90 L Absolute Monos (auto) 0.70 Absolute Eos (auto) 0.10 Absolute Basos (auto) 0.00 Neutrophils % 75.0 Lymphocytes % 13.1 L Monocytes % 9.6 H Eosinophils % 1.8 Basophils % 0.5 Sodium 137 Potassium 4.5 Chloride 102 Carbon Dioxide 27 Anion Gap 12.5 BUN 23 H Creatinine 0.72 BUN/Creatinine Ratio 31.9 H Random Glucose 193 H Serum Osmolality 282.8 Calcium 9.8 Magnesium 1.6 L Total Bilirubin 0.7 AST 17 ALT 22 Alkaline Phosphatase 54 Creatine Kinase 57 CK-MB (CK-2) 4.7 H* CK-MB (CK-2) % 8.25 H Troponin I < 0.02 B-Natriuretic Peptide 30.0 Serum Total Protein 6.8 Albumin 3.9 Globulin 2.9 Albumin/Globulin Ratio 1.3 Amylase 31 Lipase 29 TSH 3.26 Urine Color Yellow Urine Appearance Clear Urine pH 5.5 Ur Specific [place] 1.025 Urine Protein Negative Urine Glucose (UA) Negative Urine Ketones Trace Urine Blood Negative Urine Nitrite Negative Urine Bilirubin Negative Urine Urobilinogen 0.2 Ur Leukocyte Esterase Negative Urine RBC 0-1 Urine WBC 0-1 Ur Epithelial Cells 0 Amorphous Sediment 4+ Urine Bacteria 0 Departure - Departure Clinical Impression: Uncontrolled hypertension, Dizziness Disposition: Discharge to Home or Self Care Condition: Fair Departure Forms: ED Discharge - Pt. Copy, Patient Portal Self Enrollment Instructions: High Blood Pressure (DC) Diet: low salt diet Activity: increase activity as tolerated Referrals: Drew Damico III, MD [Primary Care Provider] - 1-2 Weeks Prescriptions: Clonidine HCl 0.1 mg PO BID PRN #15 tab PRN Reason: Hypertension Home Medications: Ambulatory Orders Metformin HCl [Metformin Hydrochloride] 1,000 mg PO BID 12/10/15 Pantoprazole Tablet [Protonix] 40 mg PO BEDTIME 12/10/15 Paroxetine HCl [Paroxetine Hydrochloride] 20 mg PO BID 09/15/17 Aspirin [Aspirin 81 Low Dose] 81 mg PO DAILY 11/21/19 Clonidine HCl 0.1 mg PO BID PRN #15 tab 11/21/19 Donepezil Hydrochloride [Donepezil HCl] 10 mg PO DAILY 11/21/19 Lisinopril 20 mg PO BID 11/21/19 Pioglitazone HCl [Actos] 7.5 mg PO DAILY 11/21/19 Pravastatin Sodium 40 mg PO DAILY 11/21/19 Additional Instructions: The patient is a 69-year-old female presenting secondary to dizziness. The patient is found to have uncontrolled hypertension and did receive a dose of clonidine which did help. The patient will be written for clonidine 0.1 mg every 12 hours as needed to be taken only if the systolic blood pressure is greater than 170 or the diastolic blood pressures greater than 110, both on 2 consecutive checks 1 hour apart. The patient does need to continue her daily aspirin. Laboratory work along with head CT and chest x-ray along with EKG were reassuring as well. She does need to ambulate carefully to prevent falls. The patient will be called with the results of her coronavirus swab.
[2019-11-21 15:48] VITALS: BP 161/88; O2SAT 98
== END 2019-11-21 15:50 | disposition home or self-care (01) ==
LOC: ER 12:18
DX: R42 Dizziness and giddiness (principal); I10 Essential (primary) hypertension; E11.9 Type 2 diabetes mellitus without complications; Z11.59 Encounter for screening for other viral diseases; Z79.82 Long term (current) use of aspirin; Z79.899 Other long term (current) drug therapy; Z79.84 Long term (current) use of oral hypoglycemic drugs

== ENCOUNTER → 2020-03-02 | Outpatient (CLI) | payer MEDICARE | LOC: GMAL 10:21 | PROVIDERS: ATTEND Family Medicine | DX: R53.82 Chronic fatigue, unspecified (principal); E11.9 Type 2 diabetes mellitus without complications; E78.2 Mixed hyperlipidemia; Z79.899 Other long term (current) drug therapy ==

== ENCOUNTER → 2020-04-25 | Outpatient (CLI) | payer MEDICARE ==
--- NOTE | 2020-04-26 15:21 | MRI ---
EXAM DESCRIPTION: Lumbar Spine w/o Contrast : Magnetic Resonance Imaging. CLINICAL HISTORY: LUMBAR SPONDYLOLISTHESIS COMPARISON: MRI scan lumbar spine without contrast November 2019. TECHNIQUE: Multiplanar, multiple standard sequences, non contrast MRI, lumbar spine. FINDINGS: L5-S1: The disc is well visualized on axial T2 series 501, image 3. Minimal disc desiccation with no bulging and disc space maintained. Hypertrophic changes in the posterior flavum ligaments and bilateral facet joints (canal elements. AP canal diameter of 11 mm. This has progressed since the prior study. Moderate to severe bilateral foraminal narrowing is stable. L4-L5: Disc desiccation with minimal disc space loss and no bulging. Grade 1 anterolisthesis 4 mm. Hypertrophic changes in the canal elements more on the left than the right. AP canal diameter 9 mm. Moderate right foraminal stenosis. Near stenosis of the right subarticular recess. Moderate narrowing of the left foramen. Mild deformity of the bilateral L4 pars interarticulares. Stable since the prior study. L3-L4: Minimal disc desiccation with disc space preserved. No bulging. Minimal hypertrophy of the canal elements. Impressing on the lateral thecal sac. Mild to moderate canal narrowing. Mild narrowing of the right foramen and left foramen patent. Stable from the prior study. L2-L3: Disc desiccation with disc space preserved and tiny posterior broad-based bulge. Minimal hypertrophy of the canal elements abutting the lateral thecal sac. Mild canal narrowing. Left foramen patent. Right-sided spondylolysis and disc spur complex encroaching on the foramen and impinging the right L2 nerve with foraminal stenosis. No interval change from prior study. L1-L2: Disc space preserved with normal signal in the disc. No bulging. Hypertrophic changes in the canal elements abutting the thecal sac. Canal and foramina are patent. Stable since the prior study. Conus terminates just above the disc space. L5-S1: Normal signal of the disc with disc space preserved. Minimal hypertrophic changes in the canal elements. Canal and foramina are patent. L2-L5 levoscoliosis. Paravertebral soft tissues showing paraspinal fatty muscle atrophy.. Distal cord normal signal and caliber. Otherwise normal marrow signal in the remaining vertebral bodies and the posterior elements. Vertebral bodies are not compressed at any level. IMPRESSION: 1. Multiple levels are desiccated discs, degeneration and arthrosis with hypertrophy of the lateral ligaments and facet joints at multiple levels, canal narrowing, and levoscoliosis. 2. Continued narrowing of the canal at L5-S1 which has progressed since the prior study. Bilateral severe foraminal narrowing is stable. 3. Mild central canal stenosis and moderate right foraminal stenosis and near stenosis of the right is a reticular recess at L4-L5. No interval change. 4. Right-sided spondylosis at L2-L3 with foraminal stenosis and encroachment on the right L2 nerve is unchanged. 5. Please refer to FINDINGS for discussion of results at other disc space levels. Electronically signed by: Drew Cabrera MD 04/26/2020 3:19 PM [facility]
== END ==
LOC: MRI 14:20
PROVIDERS: ATTEND Neurological Surgery
DX: M43.16 Spondylolisthesis, lumbar region (principal); M51.36 Other intervertebral disc degeneration, lumbar region; M51.86 Other intervertebral disc disorders, lumbar region; M47.896 Other spondylosis, lumbar region; M41.9 Scoliosis, unspecified; M48.061 Spinal stenosis, lumbar region without neurogenic claudication; M48.07 Spinal stenosis, lumbosacral region

== ENCOUNTER → 2020-05-07 | Outpatient (CLI) | payer MEDICARE ==
--- NOTE | 2020-05-09 09:33 | MRI ---
EXAM DESCRIPTION: Cervical Spine: MRI. CLINICAL HISTORY: 69 years Female CERVICAL SPONDYLOLISTHESIS COMPARISON: Cervical spine MRI without contrast June 2018. TECHNIQUE: Multiplanar, high-field MRI, multiple sequences, non-contrast Cervical spine. FINDINGS: C4-C5: Disc desiccation with bulging posterior midline and to the left of midline. Hyperintense T2 weighted annular fissure in the bulging segment which is abutting the cord and the left C5 nerve root. AP canal diameter 7 mm. Minimal hypertrophy of the bilateral facet joints. Borderline left neural foraminal stenosis. C5-C6: Disc desiccation and anterior and posterior bulging. Posterior broad-based bulge is abutting the disc. Minimal thickening of the posterior flavum ligament. AP canal diameter is 6 mm. Disc bulge into the left neuroforamen with uncinate spur resulting in stenosis. Right foramen patent. C6-C7: Disc desiccation and disc space loss. Anterior bulging and spurs. Advanced endplate reactive changes. Posterior broad-based bulge and posterior ligament thickening impressing on the cord with AP canal diameter 6 mm. Bilateral uncinate spurs and bilateral neural foraminal stenosis. Normal signal in the C2-3 disc, C3-4 disc, C7-T1 disc, and T1-T2 disc with no bulging. Disc spaces preserved. Canal and neural foramina are patent. Facet joints are unremarkable. Spinal alignment C4-C6 kyphosis. No cord compression or cord edema. Atlantoaxial joint negative. Base of the cerebellar tonsils is above the foramen magnum. Paravertebral soft tissues 9 mm hyperintense T2 nodule left thyroid lobe.. Vertebral bodies are not compressed at any level. Otherwise normal marrow signal in the remaining vertebral bodies and the posterior elements. IMPRESSION: 1. Endplate changes desiccated and bulging discs and disc space loss at C4-C5, C5-C6, and C6-C7. Also facet arthrosis and hypertrophy. 2. C4-C5 mild central canal stenosis to the left of midline. Bulging disc abutting the cord and left C5 nerve root. Borderline left neural foraminal stenosis. 3. C5-C6 mild to moderate central canal stenosis. Disc and uncinate spur abutting the left C6 nerve root with left neuroforaminal stenosis. 4. C6-C7 mild to moderate multifactorial central canal stenosis. Bilateral neural foraminal stenosis with disc and spurs abutting the bilateral C7 nerve roots. 5. Please refer to FINDINGS for discussion of results at other disc space levels. Electronically signed by: Drew Cabrera MD 05/09/2020 9:31 AM [facility]
--- NOTE | 2020-05-09 10:48 | RAD ---
EXAM DESCRIPTION: Lumbar Spine,Flex/Ext: CR/DR/x-ray. CLINICAL HISTORY: 69 years Female LUMBAR RADICULOPATHY COMPARISON: Lumbar TECHNIQUE: 3 Views lumbar spine. Lateral neutral, flexion, and extension. FINDINGS: Lumbar type vertebra: 5. Minimal irregularity of the inferior endplate of L2 but no definite compression. Transitional vertebrae: None Disc spaces: Minimal narrowing L5-S1. Alignment: 7 mm anterolisthesis at L4-L5 in the neutral position. Stable or slightly increased with flexion and extension. No spondylolisthesis is noted levels in any position. Abdomen: Bowel gas pattern nonspecific IMPRESSION: Grade 1 anterolisthesis at L4-L5 in the neutral position is stable or slightly increasing with flexion and extension. Minimal irregularity of the L2 inferior endplate but no abnormality seen on previous MRI scan. Electronically signed by: Drew Cabrera MD 05/09/2020 10:46 AM [facility]
== END ==
LOC: MRI 13:53
PROVIDERS: ATTEND Neurological Surgery
DX: M54.16 Radiculopathy, lumbar region (principal); M43.16 Spondylolisthesis, lumbar region; M50.321 Other cervical disc degeneration at C4-C5 level; M50.322 Other cervical disc degeneration at C5-C6 level; M50.323 Other cervical disc degeneration at C6-C7 level; M47.892 Other spondylosis, cervical region; M48.02 Spinal stenosis, cervical region